=== PATIENT | female | born 1965 | race Caucasian/White ===

== ENCOUNTER 2019-01-24 11:16 | Emergency (ER) | payer OTHER ==
[~2019-01-24] VITALS: Ht 170.2 cm; Wt 88.5 kg
[2019-01-24] MEDS ORDERED: IOPAMIDOL 370 MG/ML 200 ML INFUS..BTL INJ ONE (12:45)
[2019-01-24] MEDS ORDERED: SODIUM CHLORIDE 0.9% 50ML 0 ML ONE (12:46)
[2019-01-24] MEDS ORDERED: VENTOLIN HFA18 GM PO (13:58)
[2019-01-24 14:06] VITALS: BP 137/72
--- NOTE | 2019-01-24 14:15 | Diagnostic Imaging Report ---
EXAMINATION: CXR 2 VIEW - HOPD INDICATION: Shortness of breath COMPARISON: None FINDINGS: LINES/TUBES:EKG leads overlie the chest. LUNGS:The lungs are mildly hyperinflated. No focal consolidation or pulmonary edema. PLEURA:No pleural effusion or pneumothorax. MEDIASTINUM:The cardiomediastinal silhouette appears normal in size and shape. Atherosclerotic calcifications of the thoracic aorta. BONES/SOFT TISSUES:No acute osseous injury. ABDOMEN:No free air under the diaphragm. IMPRESSION: Mildly hyperinflated lungs. No focal pneumonia or pulmonary edema. Signed by: Marilou Ashley MD on 01/24/2019 2:11 PM
== END 2019-01-24 14:35 | disposition home or self-care (01) ==
LOC: FSED 11:16
DX: R06.09 Other forms of dyspnea (principal)
CPT/HCPCS: 71046; 80053; 83880; 84484; 85025; 85379; 93005; 99284; Q9967